=== PATIENT | male | born 1970 | race Caucasian/White ===

== ENCOUNTER 2018-08-19 12:53 | Emergency (ER) | payer OTHER ==
[2018-08-19] MEDS: OXYMETAZOLINE HCL 0.05% NASAL SPRAY NS ONE (13:10)
--- NOTE | 2018-08-19 13:23 | ED Physician Documentation ---
General Adult - HISTORIAN Historian: patient, spouse - HPI Stated Complaint: Nose Bleed Chief Complaint: General Adult Additional Information: Left nostril nosebleed began at 1205 today. No treatment. 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 Does not take any meds. BP 172/105 in ER. Per , "that's low for him." No other modifying factors or associated signs. - ROS CONST: denies: fever - PAST HX Past History: other (above) Allergies/Adverse Reactions: Allergies Allergy/AdvReac Type Severity Reaction Status Date / Time Penicillins Allergy Verified 08/19/18 13:19 Home Medications: Ambulatory Orders Medication Instructions Recorded NK 08/19/18 - SOCIAL HX Smoking History: non-smoker - FAMILY HX Family History: No (no signif) - VITAL SIGNS Vital Signs: Vital Signs Temp Pulse Resp BP Pulse Ox 97.6 F 70 18 172/105 96 08/19/18 12:55 08/19/18 12:55 08/19/18 12:55 08/19/18 12:55 08/19/18 12:55 - REVIEWED ASSESSMENTS Nursing Assessment Reviewed: Yes Vitals Reviewed: Yes Progress - Progress Progress: Nose cleared by patient, then 4 sprays Afrin to left nostril. Clear fluid returned. No discreet bleeding site ID'ed. ED Results Lab/Radiology - Orders Orders: ED Orders Category Date Time Status Oxymetazoline HCl [Afrin 0.05%] Med 08/19/18 13:06 Discontinued 1 spray NS NOW ONE General Adult Physical Exam - PHYSICAL EXAM GENERAL APPEARANCE: obese EENT: eye inspection normal, pharynx normal, other (pink oozing from left nostril) NECK: normal inspection, supple RESPIRATORY: no resp distress BACK: normal inspection SKIN: warm/dry, normal color EXTREMITIES: no evidence of injury NEURO: CN's nml as tested, motor nml, sensation nml Discharge Clincal Impression: Left-sided nosebleed Referrals: Primary Doctor,No [Primary Care Provider] - 2 Days Additional Instructions: For three days, do not blow your nose, don't bend over as if to tie shoes or pick something from the floor. No hot foods or liquids. These things would make it more likely that your nose would bleed. Please take your blood pressure medication. Condition: Fair Disposition: 01 HOME, SELF-CARE Decision to Admit: NO Decision Time: 13:30
[2018-08-19 13:40] VITALS: BP 160/100
== END 2018-08-19 13:38 | disposition home or self-care (01) ==
LOC: ED 12:53 → EDBD 12:53 → ED 13:38
DX: R04.0 Epistaxis (principal); Z86.79 Personal history of other diseases of the circulatory system
CPT/HCPCS: 99282